=== PATIENT | female | born 1955 | race Caucasian/White ===

== ENCOUNTER 2017-12-09 11:01 | Inpatient (IN) | payer OTHER ==
[2017-12-09 11:34] LABS: #Basophils 0.1 thou/uL (0.0-0.2); #Eosinphils 0.3 thou/uL (0.0-0.7); #Lymphocytes 1.7 thou/uL (1.20-3.40); #Monocytes 0.5 thou/uL (0.11-0.59); #Neutrophils 5.2 thou/uL (1.40-6.50); %Basophils 0.8 % (0.0-1.0); %Eosinophils 3.6 % (0.0-10.0); %Lymphocytes 22.1 % (21.0-51.0); %Monocytes 6.6 % (0.0-10.0); %Neutrophils 66.9 % (42.0-75.0); Hemoglobin 15.1 g/dL (12.0-16.0); Mean Corpuscular HGB CONC 32.9 g/dL (32.0-36.0); Mean Corpuscular Hemoglobin 31.1 pg (27.0-31.0); Mean Corpuscular Volume 94.7 fL (78.0-98.0); Mean Platelet Volume 8.2 fL (7.4-10.4); Platelet Count 323 thou/uL (130-400); RBC Distribution Width 11.5 % (11.5-14.5); Red Blood Cell (RBC) Count 4.84 mill/uL (4.20-5.40); White Blood Cell (WBC) Count 7.8 thou/uL (4.8-10.8)
[2017-12-09] MEDS ORDERED: Nitroglycerin 2% Ointment 1 INCH/1 GM Packet ONE (11:44)
--- NOTE | 2017-12-09 11:51 | RAD ---
AP VIEW CHEST: Date: 12/09/17 INDICATION: Chest pain. COMPARISON: None. FINDINGS: The lungs are clear. Heart size and pulmonary vasculature within normal limits. No pleural effusion o r pneumothorax is evident. Gallstones are present within the right upper quadrant of the abdomen. The re is a calcified lesion within the proximal metaphysis of the left humerus, which is most consistent with a low grade chondroid lesion. There is mild degenerative change of both AC joints. IMPRESSION: 1. No acute cardiopulmonary abnormality. 2. Cholelithiasis. 3. Calcified lesion seen within the central aspect of left proximal humerus is most consistent with a low grade chondroid lesion. POS: [facility]
[2017-12-09 11:59] LABS: ALT (SGPT) 33 U/L (8-55); AST (SGOT) 23 U/L (5-34); Albumin 4.8 g/dL (3.4-4.8); Alkaline Phosphatase 89 U/L (40-150); Anion Gap 14 mmol/L (10-20); BUN (Urea Nitrogen) 18 mg/dL (9.8-20.1); Bilirubin, Total 0.7 mg/dL (0.2-1.2); CK (CPK) 58 U/L (29-168); Calc. Creatinine Clearance 0 mL/min (70-130); Calcium 10.1 mg/dL (7.8-10.44); Carbon Dioxide 28 mmol/L (23-31); Chloride 103 mmol/L (98-107); Estimated GFR-MDRD 62; Globulin 3.5 g/dL (2.4-3.5); Glucose 130 mg/dL (80-115); Lipase 29 U/L (8-78); Potassium 3.8 mmol/L (3.5-5.1); Protein, Total 8.3 g/dL (6.0-8.3); Sodium 141 mmol/L (136-145)
[2017-12-09 12:02] LABS: Troponin I Less than 0.010 ng/mL (< 0.028)
--- NOTE | 2017-12-09 13:44 | HP ---
PRIMARY CARE PROVIDER: City call admission from [facility]. This is a lady visiting here from [place]. CHIEF COMPLAINT: Referred to the [facility] Hospitalist Service by [facility] for ch est pain. HISTORY OF PRESENT ILLNESS: The patient has had 2 episodes of chest pain one 3 weeks ago, was in bed , heavy sensation, sharp pain went into her neck and into her jaws, severe pain lasted 4-5 minutes. It took about 20 minutes for pain to totally go away. There were no associated symptoms of nausea, s weats, shortness of breath. Yesterday the same thing happened. She was shopping at [employer] the same situation occurred. She presents for evaluation. PAST MEDICAL HISTORY: She has had labile hypertension, anxiety, depression, osteopenia. CURRENT MEDICATIONS: Her list of medicines is extensive, but they are mostly [id number]. Bupr opion 200 mg once a day, ibandronate 150 mg once a day, sertraline 200 mg a day, Sudafed 24 hours 1 i n the morning. Soolantra cream topical, ketoconazole shampoo, melatonin 10 mg once at bedtime, mecli zine 25 mg once a day, biotin 10,000 mcg a day, Tums 2 x 500 mg once a day, Caltrate 600 with vitamin D daily. ALLERGIES: PENICILLIN, SULFA, both give her urticaria. PAST SURGICAL HISTORY: Melanoma removed from her right arm 36 years ago. FAMILY HISTORY: Coronary artery disease, diabetes type 2 in mother and father, both at 91 years of age. SOCIAL HISTORY: , full code status. is in [place] at the present time where they live. Nonsmoker. Very occasional alcohol user. REVIEW OF SYSTEMS: GENERAL: She has some feelings of ataxia for which she takes the meclizine. She does not fall, she has not fainted. EYES: No double vision, blurred vision, flashing lights. ENT: No ear pain or drainage. No nasal bleeding. No trouble swallowing. CARDIAC: See present illness. No orthopnea, paroxysmal nocturnal dyspnea. RESPIRATORY: No cough, wheezing or asthma. GASTROINTESTINAL: No nausea, vomiting, diarrhea or constipation. GENITOURINARY: She has UTIs a couple of times a year. She has some blood in her urine with those, c urrently no dysuria or hematuria. MUSCULOSKELETAL: No pain or swelling in her arms or legs. NEUROLOGICAL: No strokes, seizures or focal weakness. Anxiety, depression. She does have a problem with both and takes Wellbutrin and sertraline for that. SKIN: No bruises, bleeding or rash. HEME/LYMPH: No tender or swollen lymph nodes in axilla, inguinal or cervical area. PHYSICAL EXAMINATION: GENERAL: She is alert, pleasant, cooperative lady in no acute distress. She has family members at t he bedside. VITAL SIGNS: Blood pressure 146/96, pulse 89, respiration 19, temperature 98.3. HEENT: Pupils equal, round, and reactive to light. Extraocular movements intact. Sclerae white. T ympanic membranes clear. Nose is clear. Oral mucous membranes are wet. Dental hygiene is good. NECK: Supple, without jugular venous distention, adenopathy, thyromegaly. CHEST: Clear to auscultation and percussion. HEART: Regular rate and rhythm. First and second heart sounds are clear. There are no murmurs or g allops. ABDOMEN: Soft, bowel sounds are normal. There is no hepatosplenomegaly, no mass, no rebound. EXTREMITIES: Reveal no cyanosis, clubbing or edema. PULSES: Carotid, radial, femoral, and dorsalis pedis pulses intact. SKIN: Warm and dry without bruises or rash. HEME/LYMPH: No tender or swollen lymph nodes in axilla, inguinal or cervical area. No petechial hem orrhages. NEUROLOGIC: Cranial nerves II-XII are intact. Deep tendon reflexes symmetric. Moves all extremitie s. LABORATORY AND X-RAY FINDINGS: EKG: Regular sinus rhythm. She has a Q-wave in V2 with poor R-wave progression, inverted T-wave in V2, possible old anterior infarction. Comp metabolic profile is normal except for a blood sugar 130. Cardiac enzymes normal x1. CBC is es sentially normal. Chest x-ray done in the emergency room; no cardiomegaly, CHF or infiltrate, reviewed by me. ASSESSMENT: 1. Chest pain, atypical. 2. Labile hypertension. 3. Anxiety, depression. 4. Osteopenia. PLAN: 1. Aspirin. 2. Serial enzymes. 3. A chemical Cardiolite stress test as the patient states she is unable to walk a treadmill.
[2017-12-09] MEDS ORDERED: Acetaminophen 325 MG TAB PO PRN (13:45)
[2017-12-09] MEDS ORDERED: HYDROcodone/Acetaminophen 5/325 mg Tablet PO PRN (13:45)
[2017-12-09] MEDS ORDERED: Ondansetron ODT 4 MG TAB PO PRN (13:45)
[2017-12-09] MEDS ORDERED: Zolpidem Tartrate 5 MG TAB PO PRN (13:45)
[2017-12-09 13:47] VITALS: BMI 27.3
[2017-12-09 14:52] LABS: Troponin I Less than 0.010 ng/mL (< 0.028)
--- NOTE | 2017-12-09 17:06 | PDOC.EVN ---
Event Note - Event Note Event Note: 2-day stress test
[2017-12-09 18:04] LABS: Troponin I Less than 0.010 ng/mL (< 0.028)
[2017-12-09] MEDS: Melatonin 3 MG TAB PO SCH (20:15)
[2017-12-09] MEDS ORDERED: Bupropion 100 MG SR TAB PO SCH (21:00)
[2017-12-09] MEDS ORDERED: Meclizine HCl 25 MG TAB PO SCH (21:00)
[2017-12-10] MEDS ORDERED: ADENOSINE 60 MG/20 ML VIAL ONE (10:38)
[2017-12-10 12:48] LABS: Anion Gap 12 mmol/L (10-20); BUN (Urea Nitrogen) 20 mg/dL (9.8-20.1); Calc. Creatinine Clearance 85 mL/min (70-130); Calcium 9.1 mg/dL (7.8-10.44); Carbon Dioxide 26 mmol/L (23-31); Chloride 103 mmol/L (98-107); Estimated GFR-MDRD 68; Glucose 108 mg/dL (80-115); Potassium 4.1 mmol/L (3.5-5.1); Sodium 137 mmol/L (136-145)
[2017-12-10] MEDS: Aspirin 325 MG TAB PO SCH ×2 (13:21→16:11)
--- NOTE | 2017-12-10 15:19 | NM ---
RADIONUCLIDE STRESS AND REST MYOCARDIAL PERFUSION SCAN WITH CT ATTENUATION CORRECTION AND SPECT IMAGI NG: LEFT VENTRICULAR WALL MOTION EVALUATION AND EJECTION FRACTION: HISTORY: Chest pain. FINDINGS: Adenosine protocol. Homogeneous uptake or radiotracer throughout the left ventricular myocardium. N o focal perfusion defect or reversibility. QGS analysis of gated SPECT images show global hypokinesi s without focal wall motion abnormalities. Ejection fraction calculated at 44%. IMPRESSION: 1. Normal myocardial perfusion scan. No evidence of ischemia. 2. Depressed ejection fraction of 44% with global hypokinesis. POS: [facility]
--- NOTE | 2017-12-10 16:42 | PDOC.PN ---
- Subjective Encounter Start Date: 12/10/17 Encounter Start Time: 14:00 Subjective: Follow up for chest pain, denies current pain, stress test today - Objective Resuscitation Status: Resuscitation Status FULL:Full Resuscitation MAR Reviewed: Yes Vital Signs & Weight: Vital Signs (12 hours) Temp Pulse Resp BP Pulse Ox 12/10/17 15:36 95 12/10/17 15:24 97.7 F 90 18 154/74 H 94 L 12/10/17 11:11 98.1 F 83 16 161/73 H 92 L 12/10/17 07:57 97.9 F 80 16 164/77 H 92 L Weight Weight 79.18 kg I&O: 12/09/17 12/10/17 12/11/17 06:59 06:59 06:59 Output Total 150 Balance -150 Result Diagrams: 12/09/17 11:20 12/10/17 03:30 Phys Exam - Physical Examination HEENT: PERRLA, moist MMs Neck: no nodes, no JVD, full ROM Respiratory: no wheezing, no rales, no rhonchi, wheezing present, clear to auscultation bilateral Cardiovascular: RRR, no significant murmur, no rub, gallop, irregular Gastrointestinal: soft, non-tender, no distention, positive bowel sounds Musculoskeletal: no edema, pulses present, edema present Neurological: non-focal, normal sensation, moves all 4 limbs Lymphatic: no nodes Psychiatric: normal affect, A&O x 3 Skin: no rash, normal turgor, cap refill <2 seconds Dx/Plan (1) Chest pain Code(s): R07.9 - CHEST PAIN, UNSPECIFIED Status: Acute Plan: stress test, echo and cardiology consult (2) Depression Code(s): F32.9 - MAJOR DEPRESSIVE DISORDER, SINGLE EPISODE, UNSPECIFIED Status : Chronic Qualifiers: Depression Type: unspecified Qualified Code(s): F32.9 - Major depressive disorder, single episode, unspecified Plan: Continue home medications - Plan cont current plan of care, plan discussed w/ family, DVT proph w/SCDs 1. cardiac stress test today -: 2. Echo and cardiology consult after results of EF 44% on stress test -: 3. Continue home medications for depression/anxiety * .
[2017-12-10 17:16] LABS: #Basophils 0.1 thou/uL (0.0-0.2); #Eosinphils 0.4 thou/uL (0.0-0.7); #Lymphocytes 2.6 thou/uL (1.20-3.40); #Monocytes 0.7 thou/uL (0.11-0.59); #Neutrophils 4.7 thou/uL (1.40-6.50); %Basophils 0.9 % (0.0-1.0); %Eosinophils 4.2 % (0.0-10.0); %Lymphocytes 31.1 % (21.0-51.0); %Monocytes 8.1 % (0.0-10.0); %Neutrophils 55.7 % (42.0-75.0); Hemoglobin 13.6 g/dL (12.0-16.0); Mean Corpuscular HGB CONC 31.8 g/dL (32.0-36.0); Mean Corpuscular Hemoglobin 30.4 pg (27.0-31.0); Mean Corpuscular Volume 95.6 fL (78.0-98.0); Mean Platelet Volume 8.5 fL (7.4-10.4); Platelet Count 275 thou/uL (130-400); RBC Distribution Width 11.6 % (11.5-14.5); Red Blood Cell (RBC) Count 4.47 mill/uL (4.20-5.40); White Blood Cell (WBC) Count 8.4 thou/uL (4.8-10.8)
[2017-12-10 17:30] LABS: Cardiac Risk 4.1 (Less than 4.5)
--- NOTE | 2017-12-10 17:51 | CON ---
DATE OF CONSULTATION: 12/10/2017 REASON FOR CONSULTATION: Unstable angina. HISTORY OF PRESENT ILLNESS: Ms. Buenrostro is a very pleasant 62-year-old woman who recently presented with chest pain. She states she had her first episode 3 weeks ago. It was acute in onset, severe in nature with neck and jaw radiation. It lasted for 5-10 minutes. It then slowly resolved. She then had another episode today at [employer], similar in nature. No other exacerbating or precipitating factors present. She tried to go to the emergency room. She did rule out by CK troponins. Her EKG was felt to be within normal limits. PAST MEDICAL HISTORY: Hypertension, anxiety, depression, osteopenia. HOME MEDICATIONS: Include bupropion, sertraline, melatonin, meclizine, biotin, Caltrate. ALLERGIES: PENICILLIN. PAST SURGICAL HISTORY: Melanoma. FAMILY HISTORY: Positive for CAD. SOCIAL HISTORY: She is currently . REVIEW OF SYSTEMS: Ten-point review of systems is reviewed and is as above, otherwise negative. PHYSICAL EXAMINATION: VITAL SIGNS: Blood pressure 154/74, pulse 90, temperature 97.7. GENERAL: Patient is a pleasant female who is in no acute distress. The patient appears her stated a ge. NEUROLOGIC: The patient is alert and oriented times 3 with no focal neurologic deficits. HEENT: Sclerae without icterus. Mouth has moist mucous membranes with normal pallor. NECK: No JVD. Carotid upstroke brisk. No bruits bilaterally. LUNGS: Clear to auscultation with unlabored respirations. BACK: No scoliosis or kyphosis. CARDIAC: Regular rate and rhythm with normal S1 and S2. No S3 or S4 noted. No significant rubs, mu rmurs, thrills, or gallops noted throughout the precordium. PMI is not displaced. There is no francisco ternal heave. ABDOMEN: Soft, nontender, nondistended. No peritoneal signs present. No hepatosplenomegaly. No ab normal striae. EXTREMITIES: 2+ femoral and 2+ dorsalis pedis pulses. No cyanosis, clubbing, or edema. SKIN: No gross abnormalities. PERTINENT LABS: CK and troponin negative. Creatinine 0.84, hemoglobin 13.6. IMPRESSION: Unstable angina. RECOMMENDATIONS: The patient's symptoms certainly suggest the above . Her stress study was negative for ischemia, but did have LVEF of 44%. This may be consistent with balanced ischemia. I discussed coronary angiography plan in full detail with Ms. Buenrostro, the risks include not limited to the foll owing: , stroke, IA, need for emergency surgery, loss of limb, bleeding, and infection, as well as a reaction to the dye causing kidney failure and needing long-term dialysis. I also discussed th e risks of PCI to include all of the above including coronary dissection and perforation in addition to acute stent thrombosis and restenosis. All questions about the procedure were answered. Given th e above, the patient agreed to proceed with coronary angiography and possible PCI. All questions ans wered. Also discussed drug-coated versus and nondrug-coated stent placement. There are no contraind ications, we will proceed if needed.
[2017-12-10] MEDS ORDERED: cloNIDine 0.1 MG TAB PO PRN (19:30)
[2017-12-10] MEDS: Melatonin 3 MG TAB PO SCH (21:56)
[2017-12-10] MEDS: Bupropion 100 MG SR TAB PO SCH (21:57)
[2017-12-10] MEDS: Meclizine HCl 25 MG TAB PO SCH (21:57)
[2017-12-11] MEDS ORDERED: Aspirin 325 MG TAB PO SCH (09:00)
[2017-12-11] MEDS: Bupropion 100 MG SR TAB PO SCH ×2 (09:03→22:15)
[2017-12-11] MEDS: Metoprolol Tartrate 25 MG TAB PO SCH ×2 (09:03→22:13)
[2017-12-11] MEDS: Olmesartan 5 MG TAB PO SCH (09:04)
[2017-12-11] MEDS: Aspirin 325 MG TAB PO SCH (09:04)
[2017-12-11] MEDS: Meclizine HCl 25 MG TAB PO SCH ×2 (09:05→22:13)
--- NOTE | 2017-12-11 10:53 | PDOC.PN ---
- Subjective Encounter Start Date: 12/11/17 Encounter Start Time: 08:00 -: non-verbal Subjective: Follow up for chest pain with cardiology consultation - Objective Resuscitation Status: Resuscitation Status FULL:Full Resuscitation MAR Reviewed: Yes Vital Signs & Weight: Vital Signs (12 hours) Temp Pulse Resp BP Pulse Ox 12/11/17 07:46 98 F 78 16 139/80 93 L 12/11/17 06:59 95 12/11/17 05:08 98.0 F 84 16 168/89 H 95 12/10/17 23:03 98.5 F 81 14 167/80 H 95 Weight Weight 79.288 kg I&O: 12/10/17 12/11/17 12/12/17 06:59 06:59 06:59 Intake Total 950 Output Total 150 1500 Balance -150 -550 Result Diagrams: 12/10/17 03:45 12/10/17 03:30 Phys Exam - Physical Examination Patient alert, pleasant, in no distress HEENT: PERRLA, moist MMs, sclera anicteric Neck: no nodes, no JVD, full ROM Respiratory: no wheezing, no rales, no rhonchi, wheezing present, clear to auscultation bilateral Cardiovascular: RRR, no significant murmur, no rub, gallop, irregular Musculoskeletal: no edema, pulses present, edema present Neurological: non-focal, normal sensation, moves all 4 limbs Psychiatric: normal affect, A&O x 3 Skin: no rash, normal turgor, cap refill <2 seconds Dx/Plan (1) Chest pain Code(s): R07.9 - CHEST PAIN, UNSPECIFIED Status: Acute (2) Depression Code(s): F32.9 - MAJOR DEPRESSIVE DISORDER, SINGLE EPISODE, UNSPECIFIED Status : Chronic Qualifiers: Depression Type: unspecified Qualified Code(s): F32.9 - Major depressive disorder, single episode, unspecified - Plan cont current plan of care, plan discussed w/ family, DVT proph w/SCDs Patient is scheduled for a cardiac cath on Wednesday for unstable angina -: Transfer to Inpatient -: Continue home meds -: Continue labs -: Will continue to follow * .
--- NOTE | 2017-12-11 12:34 | PDOC.CTH ---
<Alfreda Silva - Last Filed: 12/11/17 12:28> Cardiology Progress Note - Subjective No complaints. No CP/SOB. Wants to get up and walk. - Objective Vital Signs Temp Pulse Resp BP Pulse Ox 12/11/17 11:31 98.6 F 80 18 131/63 98 12/11/17 07:46 98 F 78 16 139/80 93 L 12/11/17 06:59 95 12/11/17 05:08 98.0 F 84 16 168/89 H 95 Weight 174 lb 12.8 oz 12/10/17 12/11/17 12/12/17 06:59 06:59 06:59 Intake Total 950 Output Total 150 1500 Balance -150 -550 - Physical Examination General/Neuro: alert & oriented x3 Neck: no JVD present Lungs: CTA Heart: RRR Abdomen: NT/ND - Telemetry Telemetry Rhythm: SR - Labs Result Diagrams: 12/10/17 03:45 12/10/17 03:30 Troponin/CKMB CK-MB (CK-2) 1.0 ng/mL (0-6.6) 12/09/17 11:20 Troponin I Less than 0.010 ng/mL (< 0.028) 12/09/17 17:33 - Assessment/Plan 1. CP/UA 2. HTN Stable without CP in last 24 hours. Toprol started for HTN. Ok to walk in [place]. <Bhanu Guardado - Last Filed: 12/11/17 19:33> Cardiology Progress Note - Objective Vital Signs Temp Pulse Resp BP Pulse Ox 12/11/17 15:43 98.1 F 68 21 H 135/63 91 L 12/11/17 11:31 98.6 F 80 18 131/63 98 12/11/17 07:46 98 F 78 16 139/80 93 L Weight 174 lb 12.8 oz 12/10/17 12/11/17 12/12/17 06:59 06:59 06:59 Intake Total 950 Output Total 150 1500 Balance -150 -550 - Labs Result Diagrams: 12/10/17 03:45 12/10/17 03:30 Troponin/CKMB CK-MB (CK-2) 1.0 ng/mL (0-6.6) 12/09/17 11:20 Troponin I Less than 0.010 ng/mL (< 0.028) 12/09/17 17:33 - Assessment/Plan Pt seen and examined. Agree with above assessment Plan for angio on Wednesday
[2017-12-11] MEDS: Atorvastatin Calcium 40 MG TAB PO SCH (22:13)
[2017-12-11] MEDS: Melatonin 3 MG TAB PO SCH (22:14)
[2017-12-12] MEDS ORDERED: diphenhydrAMINE 25 MG CAP PO PRN (02:10)
[2017-12-12 04:07] LABS: #Basophils 0.1 thou/uL (0.0-0.2); #Eosinphils 0.4 thou/uL (0.0-0.7); #Lymphocytes 2.7 thou/uL (1.20-3.40); #Monocytes 0.9 thou/uL (0.11-0.59); #Neutrophils 5.5 thou/uL (1.40-6.50); %Eosinophils 4.1 % (0.0-10.0); %Lymphocytes 28.2 % (21.0-51.0); %Monocytes 9.2 % (0.0-10.0); %Neutrophils 57.5 % (42.0-75.0); Hemoglobin 14.4 g/dL (12.0-16.0); Mean Corpuscular HGB CONC 33.1 g/dL (32.0-36.0); Mean Corpuscular Hemoglobin 31.4 pg (27.0-31.0); Mean Corpuscular Volume 94.9 fL (78.0-98.0); Mean Platelet Volume 8.3 fL (7.4-10.4); Platelet Count 324 thou/uL (130-400); RBC Distribution Width 11.5 % (11.5-14.5); Red Blood Cell (RBC) Count 4.58 mill/uL (4.20-5.40); White Blood Cell (WBC) Count 9.5 thou/uL (4.8-10.8)
[2017-12-12 04:29] LABS: ALT (SGPT) 37 U/L (8-55); AST (SGOT) 26 U/L (5-34); Albumin 4.5 g/dL (3.4-4.8); Alkaline Phosphatase 84 U/L (40-150); Anion Gap 12 mmol/L (10-20); BUN (Urea Nitrogen) 19 mg/dL (9.8-20.1); Bilirubin, Total 0.6 mg/dL (0.2-1.2); Calc. Creatinine Clearance 80 mL/min (70-130); Calcium 9.7 mg/dL (7.8-10.44); Carbon Dioxide 27 mmol/L (23-31); Chloride 104 mmol/L (98-107); Estimated GFR-MDRD 64; Globulin 3.3 g/dL (2.4-3.5); Glucose 118 mg/dL (80-115); Potassium 4.6 mmol/L (3.5-5.1); Protein, Total 7.8 g/dL (6.0-8.3); Sodium 138 mmol/L (136-145)
[2017-12-12] MEDS ORDERED: Loratadine 10 MG TAB PO PRN (07:37)
[2017-12-12] MEDS ORDERED: Sodium Chloride 0.9% 1,000 ML IV SCH (08:00)
[2017-12-12] MEDS ORDERED: Communication Order-Pharmacy FS SCH (08:00)
[2017-12-12] MEDS: Olmesartan 5 MG TAB PO SCH (08:43)
[2017-12-12] MEDS: Bupropion 100 MG SR TAB PO SCH ×2 (08:43→20:41)
[2017-12-12] MEDS: Aspirin 325 MG TAB PO SCH (08:43)
[2017-12-12] MEDS: Meclizine HCl 25 MG TAB PO SCH ×2 (08:44→20:41)
[2017-12-12] MEDS: Metoprolol Tartrate 25 MG TAB PO SCH ×2 (08:44→20:40)
--- NOTE | 2017-12-12 10:58 | PDOC.CTH ---
Cardiology Progress Note - Subjective No overnight events. No further CP, jaw pain, SOB. Reports shellfish allergy. - Objective Vital Signs Temp Pulse Resp BP Pulse Ox 12/12/17 08:30 98.1 F 68 12 137/72 92 L 12/12/17 07:19 93 L 12/12/17 03:26 98.3 F 69 18 137/66 94 L Weight 174 lb 12.8 oz 12/11/17 12/12/17 12/13/17 06:59 06:59 06:59 Intake Total 950 390 Output Total 1500 650 Balance -550 -260 - Physical Examination General/Neuro: alert & oriented x3 Lungs: CTA Heart: RRR Abdomen: NT/ND - Telemetry Telemetry Rhythm: SR - Labs Result Diagrams: 12/12/17 03:25 12/12/17 03:25 Troponin/CKMB CK-MB (CK-2) 1.0 ng/mL (0-6.6) 12/09/17 11:20 Troponin I Less than 0.010 ng/mL (< 0.028) 12/09/17 17:33 - Assessment/Plan 1. CP/UA 2. HTN Stable cardiac status. Plan for LHC in the AM. Dr. Guardado notified of potential iodine allergy.
[2017-12-12] MEDS ORDERED: predniSONE 20 MG TAB PO SCH ×3 (12:30→23:00)
[2017-12-12 12:53] LABS: Thyroid Stimulating Hormone 1.7754 uIU/mL (0.35-4.94)
--- NOTE | 2017-12-12 14:44 | PDOC.PN ---
- Subjective Encounter Start Date: 12/12/17 Encounter Start Time: 11:00 Subjective: Follow up for chest pain, unstable angina, -: patient will have a cardiac cath on 12/13/2017 -: Patient denies any current symptoms, denies CP while admitted. - Objective Resuscitation Status: Resuscitation Status FULL:Full Resuscitation MAR Reviewed: Yes Vital Signs & Weight: Vital Signs (12 hours) Temp Pulse Resp BP Pulse Ox 12/12/17 11:51 98.2 F 69 14 137/70 95 12/12/17 08:30 98.1 F 68 12 137/72 92 L 12/12/17 07:19 93 L 12/12/17 03:26 98.3 F 69 18 137/66 94 L Weight Weight 79.288 kg I&O: 12/11/17 12/12/17 12/13/17 06:59 06:59 06:59 Intake Total 950 390 350 Output Total 1500 650 400 Balance -550 -260 -50 Result Diagrams: 12/12/17 03:25 12/12/17 03:25 Phys Exam - Physical Examination Constitutional: NAD HEENT: PERRLA, moist MMs, sclera anicteric Neck: no nodes, no JVD, full ROM Respiratory: no wheezing, no rales, no rhonchi, wheezing present, clear to auscultation bilateral Cardiovascular: RRR, no significant murmur, no rub, gallop, irregular Gastrointestinal: soft, non-tender, no distention, positive bowel sounds Musculoskeletal: no edema, pulses present, edema present Neurological: non-focal, normal sensation, moves all 4 limbs Psychiatric: normal affect, A&O x 3 Skin: no rash, normal turgor, cap refill <2 seconds Dx/Plan (1) Chest pain Code(s): R07.9 - CHEST PAIN, UNSPECIFIED Status: Acute (2) Depression Code(s): F32.9 - MAJOR DEPRESSIVE DISORDER, SINGLE EPISODE, UNSPECIFIED Status : Chronic Qualifiers: Depression Type: unspecified Qualified Code(s): F32.9 - Major depressive disorder, single episode, unspecified - Plan cont current plan of care, plan discussed w/ family, DVT proph w/SCDs -: Cardiac cath on 12/13 -: Continue to monitor, continue labs -: Reports strong family hx of thyroid issue (after talking to family last nt) -: Thyroid labs were ordered and WNL * .
[2017-12-12] MEDS ORDERED: diphenhydrAMINE 25 MG CAP PO SCH (15:00)
[2017-12-12] MEDS: diphenhydrAMINE 25 MG CAP PO SCH ×2 (15:07→20:39)
[2017-12-12] MEDS: predniSONE 20 MG TAB PO SCH ×2 (16:08→20:38)
[2017-12-12] MEDS: Melatonin 3 MG TAB PO SCH (20:38)
[2017-12-12] MEDS: Atorvastatin Calcium 40 MG TAB PO SCH (20:39)
[2017-12-13] MEDS: predniSONE 20 MG TAB PO SCH ×2 (02:13→06:04)
[2017-12-13] MEDS: diphenhydrAMINE 25 MG CAP PO SCH ×2 (02:13→06:04)
[2017-12-13] MEDS ORDERED: Calcium Carbonate 500 MG ChewTAB PO PRN (02:27)
[2017-12-13 04:23] LABS: #Lymphocytes 0.9 thou/uL (1.20-3.40); #Monocytes 0.3 thou/uL (0.11-0.59); #Neutrophils 8.7 thou/uL (1.40-6.50); %Eosinophils 0.2 % (0.0-10.0); %Lymphocytes 8.8 % (21.0-51.0); %Monocytes 2.6 % (0.0-10.0); %Neutrophils 88.5 % (42.0-75.0); Hemoglobin 14.5 g/dL (12.0-16.0); Mean Corpuscular HGB CONC 32.9 g/dL (32.0-36.0); Mean Corpuscular Hemoglobin 31.1 pg (27.0-31.0); Mean Corpuscular Volume 94.3 fL (78.0-98.0); Mean Platelet Volume 8.4 fL (7.4-10.4); Platelet Count 330 thou/uL (130-400); RBC Distribution Width 11.3 % (11.5-14.5); Red Blood Cell (RBC) Count 4.68 mill/uL (4.20-5.40); White Blood Cell (WBC) Count 9.9 thou/uL (4.8-10.8)
[2017-12-13 04:46] LABS: ALT (SGPT) 36 U/L (8-55); AST (SGOT) 22 U/L (5-34); Albumin 4.6 g/dL (3.4-4.8); Alkaline Phosphatase 84 U/L (40-150); Anion Gap 15 mmol/L (10-20); BUN (Urea Nitrogen) 20 mg/dL (9.8-20.1); Bilirubin, Total 0.5 mg/dL (0.2-1.2); Calc. Creatinine Clearance 88 mL/min (70-130); Calcium 10.3 mg/dL (7.8-10.44); Carbon Dioxide 24 mmol/L (23-31); Chloride 103 mmol/L (98-107); Estimated GFR-MDRD 71; Globulin 3.4 g/dL (2.4-3.5); Glucose 159 mg/dL (80-115); Potassium 4.5 mmol/L (3.5-5.1); Sodium 137 mmol/L (136-145)
[2017-12-13] MEDS ORDERED: Sodium Chloride 0.9% 1,000 ML IV SCH ×2 (06:00→11:30)
[2017-12-13] MEDS: Metoprolol Tartrate 25 MG TAB PO SCH (06:02)
[2017-12-13] MEDS: Aspirin 325 MG TAB PO SCH (06:02)
[2017-12-13] MEDS: Olmesartan 5 MG TAB PO SCH (06:02)
[2017-12-13] MEDS: Bupropion 100 MG SR TAB PO SCH (06:04)
[2017-12-13] MEDS: Meclizine HCl 25 MG TAB PO SCH (06:04)
[2017-12-13] MEDS ORDERED: Midazolam HCl 2 mg/2 ml Vial ONE (10:23)
[2017-12-13] MEDS ORDERED: Lidocaine 1% (PF) 30 ML VIAL ONE (10:24)
[2017-12-13] MEDS ORDERED: Fentanyl 100 MCG/2 ML VIAL ONE (10:24)
[2017-12-13] MEDS ORDERED: Acetaminophen/Codeine 30-300mg Tablet PO PRN ×2 (11:20)
[2017-12-13] MEDS ORDERED: traMADol HCl 50 MG TAB PO PRN (11:20)
[2017-12-13] MEDS ORDERED: Nitroglycerin 0.4 MG TAB (25 Tab Bottle) SL PRN (11:20)
[2017-12-13] MEDS ORDERED: Sodium Chloride 0.9% 200 ML IV SCH (11:30)
[2017-12-13] MEDS ORDERED: Iopamidol 370 76% 100 ML VIAL ONE (12:14)
[2017-12-13 12:27] VITALS: BP 137/62; TEMP 97.8
--- NOTE | 2017-12-13 13:34 | PDOC.EVN ---
Event Note - Event Note Event Note: I have examined and discussed patient with Quan LARA regarding chest pain. Reviewed cardiac catheterization results as negative. Incidental finding of cholelithiasis on heart cath with recommendations for outpt evaluation once arriving back in [place]. Please see dictated discharge summary for details. Discharge home today.
--- NOTE | 2017-12-15 11:52 | DIS ---
DATE OF ADMISSION: 12/09/2017 DATE OF DISCHARGE: 12/13/2017 DISCHARGE DIAGNOSES: 1. Chest pain, noncardiac, stable. 2. Anxiety disorder, stable. 3. Essential primary hypertension, stable. 4. Cholelithiasis, stable. CONSULTATIONS: Cardiology, Dr. Guardado. PERTINENT LABORATORY DATA AND DIAGNOSTIC FINDINGS: WBC 9.9, RBC 4.68, hemoglobin 14.5. Sodium 137, potassium 4.5. Cardiac enzymes within normal limits. Chest x-ray on 12/09/2017 revealed no acute ca rdiopulmonary abnormality but did demonstrate cholelithiasis. HOSPITAL COURSE: This patient was admitted after experiencing some chest pain over the last several weeks. This was unstable angina in nature. Cardiac enzymes were found to be within normal limits. Cardiology was consulted for unstable angina. Dr. Guardado saw patient and evaluated her for her ch est pain and determine she would require stress test and echocardiogram. Her stress test revealed no signs of ischemia; however, did display EF 44%. Her echocardiogram displayed a left ventricular eje ction fraction of 55%-60% with E/A flow reversal noted suggestive of diastolic dysfunction, mild mitr al regurgitation is present with mild tricuspid regurgitation. Dr. Guardado did see patient and dis cussed cardiac catheterization with patient, which included risks and benefits of procedure. It was then determined that Dr. Guardado would proceed with cardiac catheterization at this time for the ev aluation of patient's unstable angina and cardiac catheterization on 12/13/2017 was found to be unrem arkable; however, did display an incidental finding of cholelithiasis of about 10 stones and gallblad cynthia and Dr. Guardado did recommend a consultation placed for General Surgery. Dr. Horvath was consul deja; however, patient in fact decline a consultation for General Surgery at this time, as she did not want to pursue her gallstones at this time. She is from [place] and is planning to return back home wi thin the week. When discussed plan with patient, she did state that she will follow up with her [facility] physician when she returns home and get in to see a general surgeon at that time. Dr. Coy oconnor did order an ultrasound to further evaluate these gallstones; however, patient declined this test a t this time. Her chest pain seemed to improve throughout hospital course with the addition of Lipito r, Benicar, and Lopressor. On admission, the patient's blood pressure seemed to be elevated; however , this improved throughout hospital course. Patient was seen and examined with several family member s, status post cardiac catheterization and she verbalized her understanding in agreement for discharg e on 12/13/2017. DISCHARGE MEDICATIONS: Atorvastatin 40 mg at bedtime, Benicar 10 mg daily, Lopressor 12.5 mg twice d aily, meclizine 25 mg twice daily, Valerian root 500 mg at bedtime, calcium carbonate 1000 mg oral 4 times daily as needed for heartburn, fiber tablets 1250 mg daily as needed for constipation, vitamin B complex 1 tablet daily. FOLLOWUP: The patient is to follow up with her primary care provider when she returns home in [facility] 1-2 weeks. It is also recommended she follow up with general surgeon at that time to evaluate for her gallstones. CONDITION ON DISCHARGE: Stable. ACTIVITY: As tolerated. DIET: Regular diet. CODE STATUS: FULL RESUSCITATION. DISPOSITION: Home on 12/13/2017.
== END 2017-12-13 15:26 | disposition home or self-care (01) | DRG 287 ==
LOC: ERS 11:01 → 2SW 13:40 → OBSVTOIN 12-11 10:27
PROVIDERS: ADMIT Internal Medicine; ATTEND Internal Medicine
PROC: 4A023N7 Measurement of Cardiac Sampling and Pressure, Left Heart, Percutaneous Approach (ICD-10-PCS; principal; 2017-12-13)
PROC: B2111ZZ Fluoroscopy of Multiple Coronary Arteries using Low Osmolar Contrast (ICD-10-PCS; 2017-12-13)
PROC: B2151ZZ Fluoroscopy of Left Heart using Low Osmolar Contrast (ICD-10-PCS; 2017-12-13)
DX: R07.89 Other chest pain (principal); R94.39 Abnormal result of other cardiovascular function study; K80.20 Calculus of gallbladder without cholecystitis without obstruction; I10 Essential (primary) hypertension; E78.00 Pure hypercholesterolemia, unspecified; E11.9 Type 2 diabetes mellitus without complications; M85.80 Other specified disorders of bone density and structure, unspecified site; Z82.49 Family history of ischemic heart disease and other diseases of the circulatory system; F41.8 Other specified anxiety disorders; Z88.0 Allergy status to penicillin; Z88.2 Allergy status to sulfonamides; Z91.013 Allergy to seafood
CPT/HCPCS: 36415; 71045; 76942; 78452; 80048; 80053; 80061; 82553; 83690; 84439; 84443; 84481; 84484; 85025; 90471; 90686; 93005; 93017; 93306; 93458; 93798; 94760; 99152; A9500; C1760; C1769; G0008; J0153; J1644; J2001; J2250; J3010; J7506